=== PATIENT | male | born 1990 | race Caucasian/White ===

== ENCOUNTER 2020-12-13 17:51 | Emergency (ER) | payer OTHER ==
[~2020-12-13 17:51] MED LIST: ANTABUSE250 MG PO; ATARAX25 MG PO; ATIVAN1 MG PO; B-1100 MG PO; CERTAGEN1 EACH PO; DIAZEPAM 5MG TAB5 MG PO; FEOSOL325 MG PO; FOLIC ACID1 MG PO; PRILOSEC20 MG PO; ZANTAC150 MG PO
[2020-12-13 19:14] LABS: BILIRUBIN 1+ mg/dL (NEGATIVE); BLOOD NEGATIVE Ery/uL (NEGATIVE); CLARITY CLEAR (CLEAR); COLOR YELLOW (YELLOW); GLUCOSE (U) NORMAL (NORMAL); LEUKOCYTES NEGATIVE Leu/uL (NEGATIVE); NITRITE NEGATIVE (NEGATIVE); PROTEIN 1+ mg/dL (NEGATIVE); SPECIFIC GRAVITY >=1.030 (1.001-1.030); UROBILINOGEN 0.2 mg/dL (0.2-1.0); pH 5.5 (5.0-9.0)
[2020-12-13 19:17] LABS: AMPHETAMINES NEGATIVE (NEGATIVE); BARBITURATES NEGATIVE (NEGATIVE); ECSTASY (MDMA) NEGATIVE (NEGATIVE); MARIJUANA (THC) NEGATIVE (NEGATIVE); METHADONE NEGATIVE (NEGATIVE); OPIATES NEGATIVE (NEGATIVE); OXYCODONE NEGATIVE (NEGATIVE)
[2020-12-13 19:24] LABS: BASOPHIL 0.8 % (0-2); EOSINOPHIL 0.1 % (0-5); HCT 54.2 % (42.0-52.0); HGB 19.1 g/dl (13.2-18.0); LYMPHOCYTE 27.4 % (15-48); MCH 32.9 pg (25.0-31.0); MCHC 35.2 g/dL (32.0-36.0); MCV 93.3 fL (78.0-100.0); MONOCYTE 4.7 % (0-12); MPV 10.2 fL (6.0-9.5); NEUTROPHIL 66.9 % (41-80); NRBC 0; PLT 413 K/uL (150-400); RBC 5.81 M/uL (4.70-6.00); RDW 12.7 % (11.5-14.0)
[2020-12-13 19:27] LABS: ALBUMIN 5.1 g/dL (3.4-5.0); BILIRUBIN - TOTAL 1.3 mg/dL (0.2-1.0); BUN/CREAT RATIO (CALC) 12.6 RATIO; CREATININE 0.87 mg/dL (0.67-1.17); GLOBULIN (CALCULATION) 3.9 g/dL; POTASSIUM 4.1 mmol/L (3.5-5.1)
[2020-12-13 19:29] LABS: BACTERIA TRACE; SQUAMOUS EPITHELIAL CELLS RARE; URINARY RBC RARE; URINARY WBC RARE
== END 2020-12-13 21:39 | disposition home or self-care (01) ==
LOC: FER 17:51
PROVIDERS: Emergency Medicine
DX: F10.229 Alcohol dependence with intoxication, unspecified (principal); Z88.0 Allergy status to penicillin; Z87.19 Personal history of other diseases of the digestive system; Y90.8 Blood alcohol level of 240 mg/100 ml or more
CPT/HCPCS: 36415; 80053; 80305; 81001; 83690; 85025; G0480; J2405; J3411; J7030

== ENCOUNTER 2021-08-07 20:26 | Emergency (ER) | payer OTHER ==
[2021-08-07 21:53] LABS: EOSINOPHIL 0.7 % (0-5); HCT 49.7 % (42.0-52.0); HGB 17.7 g/dl (13.2-18.0); LYMPHOCYTE 34.8 % (15-48); MCH 30.9 pg (25.0-31.0); MCHC 35.6 g/dL (32.0-36.0); MCV 86.7 fL (78.0-100.0); MONOCYTE 12.3 % (0-12); NRBC 0; PLT 215 K/uL (150-400); RBC 5.73 M/uL (4.70-6.00); RDW 12.6 % (11.5-14.0); WBC 4.1 K/uL (4.0-10.5)
[2021-08-07 22:17] LABS: CREATININE 0.89 mg/dL (0.67-1.17); POTASSIUM 3.8 mmol/L (3.5-5.1)
[2021-08-07 22:22] LABS: BILIRUBIN NEGATIVE (NEGATIVE); BLOOD NEGATIVE Ery/uL (NEGATIVE); CLARITY CLEAR (CLEAR); COLOR YELLOW (YELLOW); GLUCOSE (U) NORMAL (NORMAL); LEUKOCYTES NEGATIVE Leu/uL (NEGATIVE); NITRITE NEGATIVE (NEGATIVE); PROTEIN 2+ mg/dL (NEGATIVE); SPECIFIC GRAVITY 1.015 (1.001-1.030); pH 6.5 (5.0-9.0)
[2021-08-07 22:25] LABS: AMPHETAMINES NEGATIVE (NEGATIVE); BARBITURATES NEGATIVE (NEGATIVE); ECSTASY (MDMA) NEGATIVE (NEGATIVE); MARIJUANA (THC) NEGATIVE (NEGATIVE); METHADONE NEGATIVE (NEGATIVE); OPIATES NEGATIVE (NEGATIVE); OXYCODONE NEGATIVE (NEGATIVE)
[2021-08-07 22:29] LABS: MUCOUS MODERATE; URINARY WBC RARE
[2021-08-07] MEDS ORDERED: LIBRIUM25 MG PO (22:38)
== END 2021-08-07 23:20 | disposition home or self-care (01) ==
LOC: FER 20:26
PROVIDERS: Emergency Medicine
DX: F10.10 Alcohol abuse, uncomplicated (principal); Y90.8 Blood alcohol level of 240 mg/100 ml or more
CPT/HCPCS: 36415; 80048; 80305; 81001; 85025; G0480; J3360

== ENCOUNTER 2022-07-29 03:19 | Emergency (ER) | payer OTHER ==
[~2022-07-29 03:19] MED LIST changes: +LIBRIUM25 MG PO
[2022-07-29 04:22] LABS: BASOPHIL 0.8 % (0-2); EOSINOPHIL 0.1 % (0-5); HGB 16.1 g/dl (13.2-18.0); LYMPHOCYTE 24.2 % (15-48); MCH 30.5 pg (25.0-31.0); MCV 87.1 fL (78.0-100.0); MONOCYTE 5.2 % (0-12); MPV 10.7 fL (6.0-9.5); NEUTROPHIL 69.4 % (41-80); NRBC 0; PLT 300 K/uL (150-400); RBC 5.28 M/uL (4.70-6.00); RDW 11.9 % (11.5-14.0); WBC 7.9 K/uL (4.0-10.5)
[2022-07-29 04:41] LABS: ALBUMIN 5.2 g/dL (3.4-5.0); BILIRUBIN - TOTAL 1.4 mg/dL (0.2-1.0); CREATININE 1.11 mg/dL (0.67-1.17); GLOBULIN (CALCULATION) 3.5 g/dL; POTASSIUM 4.1 mmol/L (3.5-5.1); TOTAL PROTEIN 8.7 g/dL (6.4-8.2)
[2022-07-29] MEDS ORDERED: ATIVAN0.5 MG PO (06:33)
== END 2022-07-29 08:04 | disposition home or self-care (01) ==
LOC: FER 03:19
PROVIDERS: Emergency Medicine
DX: F10.20 Alcohol dependence, uncomplicated (principal); Y90.7 Blood alcohol level of 200-239 mg/100 ml; F17.290 Nicotine dependence, other tobacco product, uncomplicated; Z28.310 Unvaccinated for COVID-19; Z79.899 Other long term (current) drug therapy
CPT/HCPCS: 36415; 80053; 85025; G0480; J2060; J2405; J7030